=== PATIENT | female | born 1950 | race Caucasian/White ===

== ENCOUNTER → 2016-08-30 | Outpatient (CLI) | payer MEDICARE, MEDICAID | LOC: MW.CHPOD 08:00 | PROVIDERS: ATTEND Podiatrist Foot & Ankle Surgery | DX: M76.822 Posterior tibial tendinitis, left leg (principal); M21.6X2 Other acquired deformities of left foot; M79.672 Pain in left foot; M20.5X2 Other deformities of toe(s) (acquired), left foot; T14.8 Other injury of unspecified body region | CPT/HCPCS: 29540; 99203 ==

== ENCOUNTER → 2016-09-14 | Outpatient (CLI) | payer MEDICARE, OTHER | LOC: MW.CHPOD 08:00 | PROVIDERS: ATTEND Podiatrist Foot & Ankle Surgery | DX: M79.606 Pain in leg, unspecified (principal); T14.8 Other injury of unspecified body region; M76.822 Posterior tibial tendinitis, left leg; M21.6X2 Other acquired deformities of left foot; M79.672 Pain in left foot | CPT/HCPCS: 29540; 99214 ==